=== PATIENT | female | born 1990 | race Two or more races ===

== ENCOUNTER 2020-03-31 12:30 | Inpatient (IN) | payer OTHER ==
[~2020-03-31] VITALS: Ht 152.4 cm; Wt 75.7 kg
[2020-04-12] MEDS ORDERED: PRENATAL TABLE1 EAC1 PO (13:45)
[2020-04-12] MEDS ORDERED: IRON 100 PLUS1 EACH PO (13:46)
[2020-04-12] MEDS ORDERED: VALTREX1000 MG PO (13:51)
[2020-04-15] MEDS ORDERED: FERROUS SULFAT325 MG PO (07:33)
== END 2020-04-15 13:14 | disposition home or self-care (01) | DRG 768 ==
LOC: EDSTATUS 12:30 → ADM 12:30 → LDR 04-12 09:09 → OB/GYN 04-12 09:09
PROVIDERS: Obstetrics & Gynecology; ADMIT Specialist; ATTEND Specialist
PROC: 0UQ Female Reproductive System, Repair (ICD-10-PCS; 2020-04-12)
PROC: 0W8NXZZ Division of Female Perineum, External Approach (ICD-10-PCS; 2020-04-12)
PROC: 4A1HXFZ Monitoring of Products of Conception, Cardiac Rhythm, External Approach (ICD-10-PCS; 2020-04-12)
PROC: 10E0XZZ Delivery of Products of Conception, External Approach (ICD-10-PCS; principal; 2020-04-12 19:00)
PROC: 30233N1 Transfusion of Nonautologous Red Blood Cells into Peripheral Vein, Percutaneous Approach (ICD-10-PCS; 2020-04-13)
DX: O71.3 Obstetric laceration of cervix (principal); Z37.0 Single live birth; O72.1 Other immediate postpartum hemorrhage; O90.81 Anemia of the puerperium; Z3A.39 39 weeks gestation of pregnancy; Z20.822 Contact with and (suspected) exposure to COVID-19; D64.9 Anemia, unspecified